=== PATIENT | male | born 1990 | race Caucasian/White ===

== ENCOUNTER 2017-06-15 09:39 | Emergency (ER) | payer MEDICAID ==
[~2017-06-15] VITALS: Ht 172.7 cm; Wt 80.7 kg
[2017-06-15 09:47] VITALS: Ht 172.7 cm; Wt 80.7 kg
[2017-06-15 11:04] VITALS: BP 113/76
== END 2017-06-15 11:04 | disposition home or self-care (01) ==
LOC: ED 09:39
DX: S62.141A Displaced fracture of body of hamate [unciform] bone, right wrist, initial encounter for closed fracture (principal); W19.XXXA Unspecified fall, initial encounter; Y93.89 Activity, other specified; Y92.89 Other specified places as the place of occurrence of the external cause; Y99.8 Other external cause status
CPT/HCPCS: J1170; Q0162

== ENCOUNTER 2019-12-10 19:21 | Emergency (ER) | payer SELFPAY ==
[~2019-12-10] VITALS: Ht 172.7 cm; Wt 82.7 kg
[2019-12-10 19:23] VITALS: Ht 172.7 cm; Wt 82.7 kg
[2019-12-10 20:36] VITALS: BP 123/65
== END 2019-12-10 20:36 | disposition home or self-care (01) ==
LOC: ED 19:21
DX: S52.001A Unspecified fracture of upper end of right ulna, initial encounter for closed fracture (principal); X58.XXXA Exposure to other specified factors, initial encounter; Y93.66 Activity, soccer; Y92.322 Soccer field as the place of occurrence of the external cause; Y99.8 Other external cause status
CPT/HCPCS: Q0092

== ENCOUNTER 2020-05-01 10:36 | Emergency (ER) | payer MEDICAID ==
[~2020-05-01] VITALS: Ht 177.8 cm; Wt 79.4 kg
[2020-05-01 10:44] VITALS: Ht 177.8 cm; Wt 79.4 kg
[2020-05-01 11:49] LABS: BASOPHIL % 0.5 % (0-2); RED CELL DISTRIBUTION WIDTH 14.1 % (11.5-14.5)
[2020-05-01 11:57] LABS: PLATELET COUNT 86 x10^3mcL (130-400)
[2020-05-01 12:07] LABS: CALCIUM 8.5 mg/dL (8.5-10.1); CARBON DIOXIDE 28.6 mmol/L (21-32); CHLORIDE SERUM 102 mmol/L (98-107); CREATININE SERUM 0.8 mg/dL (0.7-1.3); GFR1 > 60 mL/min; GLUCOSE SERUM 106 mg/dL (74-106); POTASSIUM SERUM 3.4 mmol/L (3.5-5.1); SODIUM SERUM 145 mmol/L (136-145)
[2020-05-01 12:11] LABS: ALKALINE PHOSPHATASE 128 U/L (46-116); ALT/SGPT 70 U/L (16-63); AST/SGOT 155 U/L (15-37); BILIRUBIN TOTAL 0.51 mg/dL (0.20-1.00); TOTAL PROTEIN, SERUM 7.8 g/dL (6.4-8.2)
[2020-05-01 14:43] VITALS: BP 127/88
== END 2020-05-01 14:43 | disposition home or self-care (01) ==
LOC: ED 10:36
PROVIDERS: Emergency Medicine
DX: F10.129 Alcohol abuse with intoxication, unspecified (principal); Y90.9 Presence of alcohol in blood, level not specified
CPT/HCPCS: J7030